=== PATIENT | male | born 1990 | race Caucasian/White ===

== ENCOUNTER 2023-08-16 11:53 | Emergency (ER) | payer MEDICAID ==
[~2023-08-16] VITALS: Ht 165.1 cm; Wt 68.0 kg
[2023-08-16 12:00] VITALS: O2SAT 100
[2023-08-16 12:02] VITALS: BP 123/73; PULSE 63; RESP 18; TEMP 99.2; O2SAT 96
[2023-08-16] MEDS: KETOROLAC 60 MG/2 ML VIAL IM ONE (12:18)
[2023-08-16] MEDS ORDERED: IBUP-2213 PO (12:28)
[2023-08-16] MEDS ORDERED: PRED20TA5 PO (12:28)
[2023-08-16 12:50] VITALS: BP 123/73; PULSE 63; RESP 18; TEMP 99.2; O2SAT 96
== END 2023-08-16 12:42 | disposition home or self-care (01) ==
LOC: MED 11:53
DX: R07.89 Other chest pain (principal); R05.9 Cough, unspecified; F17.200 Nicotine dependence, unspecified, uncomplicated; Z90.49 Acquired absence of other specified parts of digestive tract; Z88.0 Allergy status to penicillin
CPT/HCPCS: 96372; 99283; J1885